=== PATIENT | male | born 1980 | race Caucasian/White ===

== ENCOUNTER 2022-11-14 09:17 | Emergency (ER) | payer OTHER, BC, SELFPAY ==
[2022-11-14 09:36] VITALS: BP 150/82; PULSE 76; RESP 16; TEMP 37.2; O2SAT 99
--- NOTE | 2022-11-14 09:38 | ED.URI ---
HPI - URI/Sore Throat General Chief Complaint: Upper Respiratory Infection Stated Complaint: sore throat; productive cough Time Seen by Provider: 11/14/22 09:38 Source: patient Mode of arrival: ambulatory Limitations: no limitations History of Present Illness HPI Narrative: 42 yo M presents with c/o sore throat, nasal congestion, PND, dry cough for 5 days. Afebrile. Denies N/V/d. taking OTC sinus meds with no relief. Denies CP/SOB. All systems reviewed and negative except as noted above. Related Data Home Medications Medication Instructions Recorded Confirmed amlodipine 5 mg tablet 5 mg PO DAILY 11/14/22 11/14/22 tadalafil 5 mg tablet 5 mg PO DAILY 11/14/22 11/14/22 Allergies Allergy/AdvReac Type Severity Reaction Status Date / Time No Known Allergies Allergy Verified 11/14/22 09:54 Review of Systems Review of Systems: CONSTITUTIONAL: Denies fever, chills, or sweats. EYES: Denies visual changes, redness, or discharge. ENT: reports rhinorrhea, congestion, sore throat. Denies otalgia. CARDIOVASCULAR: Denies chest pain, palpitations, or edema. RESPIRATORY: reports cough. Denies dyspnea. GASTROINTESTINAL: Denies abdominal pain, nausea, vomiting, or diarrhea. GENITOURINARY: Denies dysuria or hematuria. SKIN: Denies rash or itching. MUSCULOSKELETAL: Denies back pain, joint pain, or myalgia. NEUROLOGIC: Denies headache, numbness, or weakness. PSYCHIATRIC: Denies anxiety or depression. All other systems reviewed are negative, except as documented in HPI. PMFSH Comments At time of signature, agree with nursing past medical, surgical, social and family history. There is no relevant family history pertinent to the presenting complaint. Exam Narrative: GENERAL: This is a well-nourished, well-developed patient, in no apparent distress. HEAD: normocephalic, atraumatic. EYES: PERRL. Sclera clear/white. Vision is grossly intact. EARS: External ears normal, auditory canals clear and without drainage, TMs normal without perforation. Hearing grossly intact. NOSE: External nose normal with clear nasal drainage. THROAT: Mucous membranes moist, mild erythema with clear PND. several small tonsil stones bilaterally NECK: Neck supple, non-tender without lymphadenopathy, masses or thyromegaly. CARDIOVASCULAR: Regular rate and rhythm without murmurs, gallops, or rubs. RESPIRATORY: Clear to auscultation. Breath sounds equal bilaterally. No wheezes, rales, or rhonchi. SKIN: warm, Dry, intact with no suspicious lesions or rash, good texture and turgor. NEURO: awake, alert, and oriented to person, place and time. There were no obvious focal neurologic abnormalities. EXTREMITIES: No joint tenderness, effusion, or edema noted. Course Course Level of Care: Express Care Visit Vital Signs Vital signs: Vital Signs Temperature 37.2 C 11/14/22 09:36 Pulse Rate 76 11/14/22 09:36 Respiratory Rate 16 11/14/22 09:36 Blood Pressure 150/82 H 11/14/22 09:36 Pulse Oximetry 99 11/14/22 09:36 Oxygen Delivery Room Air 11/14/22 09:36 Temperature 37.2 C 11/14/22 09:36 Pulse Rate 76 11/14/22 09:36 Respiratory Rate 16 11/14/22 09:36 Blood Pressure 150/82 H 11/14/22 09:36 Pulse Oximetry 99 11/14/22 09:36 Oxygen Delivery Room Air 11/14/22 09:36 reviewed MDM - URI/Sore Throat MDM Narrative Medical decision making narrative: Patient is aware of diagnosis, understands and agrees to treatment plan. Anticipatory guidance given. Patient agrees to follow-up as directed and is aware of reasons to seek care at the emergency department. Portions of this record may have been created with voice recognition software negative covid and strep testing. discussed diagnosis of tonsils stones. recommend gargling. If not improving should call PCP or ENT Differential Diagnosis Differential diagnosis: Likely upper respiratory infection, sinusitis and viral infection Lab Data Labs: Lab Results
== END 2022-11-14 10:00 | disposition home or self-care (01) ==
PROVIDERS: Emergency Provider Nurse Practitioner Family
DX: J01.90 Acute sinusitis, unspecified (principal); J35.8 Other chronic diseases of tonsils and adenoids; Z20.822 Contact with and (suspected) exposure to COVID-19; I10 Essential (primary) hypertension
CPT/HCPCS: 87081; 87426; 87880; 99203; C9803; G0463